=== PATIENT | male | born 1990 | race American Indian/Alaskan Native ===

== ENCOUNTER 2017-01-29 01:17 | Emergency (ER) | payer OTHER ==
[2017-01-29 01:31] VITALS: BP 144/79; PULSE 60; RESP 16; TEMP 98.2; O2SAT 100
[2017-01-29] MEDS ORDERED: TDAP Vaccine 0.5 mL Syr IM ONE (01:40)
--- NOTE | 2017-01-29 01:43 | ED PDOC ---
HPI: Wound Care - HPI Time Seen by Provider: 01/29/17 01:32 Chief Complaint (Nursing): Trauma Chief Complaint (Provider): right hand 4th digit injury History Per: Patient History Of Present Illness: 26 y/o male presents for eval of cut to right hand 4th digit, sustained prior to arrival. Patient states he fell on a piece of glass. Patient denies numbness/weakness right upper extremity, limitation of movement. Last Tetanus unknown. Past Medical History Reviewed: Historical Data, Nursing Documentation, Vital Signs Vital Signs: Last Vital Signs Temp 98.2 F 01/29/17 01:29 Pulse 60 01/29/17 01:29 Resp 16 01/29/17 01:29 BP 144/79 01/29/17 01:29 Pulse Ox 100 01/29/17 01:29 - Medical History PMH: No Chronic Diseases - Surgical History Surgical History: No Surg Hx - Family History Family History: States: Unknown Family Hx - Allergies Allergies/Adverse Reactions: Allergies Allergy/AdvReac Type Severity Reaction Status Date / Time No Known Allergies Allergy Verified 01/29/17 01:29 Review of Systems ROS Statement: Except As Marked, All Systems Reviewed And Found Negative Musculoskeletal: Positive for: Hand Pain (right hand 4th digit) Physical Exam - Reviewed Nursing Documentation Reviewed: Yes Vital Signs Reviewed: Yes - Physical Exam Appears: Positive for: Well, Non-toxic, No Acute Distress Head Exam: Positive for: ATRAUMATIC, NORMAL INSPECTION, NORMOCEPHALIC Pulses-Radial (L): 2+ Pulses-Radial (R): 2+ Extremity: Positive for: Normal ROM, Other (small skin avulsion distal palmar right hand 4th digit. No active bleeding. Nail intact. Distal NV, motor in tact) Neurologic/Psych: Positive for: Alert, Oriented - ECG O2 Sat by Pulse Oximetry: 100 - Other Rad xray right hand 4th digit X-Ray: Viewed By Ca X-Ray Interpretation: no acute findings - Progress ED Course And Treament: xray, boostrix IM Procedure: Wound Repair - Irrigated Irrigated with ml of normal saline: soaked with betadine/normal saline - Muscle repiar layer closed with Muscle repair layer closed with:: Abx ointment applied, Dressing applied, Tetanus ordered - Patient tolerated procedure Patient Tolerated Procedure:: Well Medical Decision Making Medical Decision Making: Patient educated on wound care, discharged with instructions to follow up PMD 2- 3 days. Advised bacitracin daily. Return to ED for worsening/concerning symptoms. Disposition - Clinical Impression Clinical Impression: Avulsion of skin of finger - Patient ED Disposition Is Patient to be Admitted: No Counseled Patient/Family Regarding: Studies Performed, Diagnosis, Need For Followup - Disposition Disposition: Routine/Home Disposition Time: 02:11 Condition: GOOD Instructions: Skin Avulsion (ED)
--- NOTE | 2017-01-29 14:43 | RAD ---
PROCEDURE: Right ring finger radiographs. HISTORY: fell on glass. Relevant medical history: 4th digit COMPARISON: None. TECHNIQUE: AP radiograph of the right hand, as well as spot oblique and lateral images of ring finger were obtained. FINDINGS: RIGHT RING FINGER: Normal right ring finger, without fracture or focal lesion. Remainder of the right hand (as seen on the AP view) grossly unremarkable. JOINTS: Normal. SOFT TISSUES: No visulaized radiopaque/visualized foreign body. OTHER FINDINGS: None. IMPRESSION: No significant or acute findings to account for/ related to the clinical presentation. No preliminary report provided by emergency department personnel.
== END 2017-01-29 02:24 | disposition home or self-care (01) ==
LOC: H.ER 01:17
DX: S61.214A Laceration without foreign body of right ring finger without damage to nail, initial encounter (principal); W19.XXXA Unspecified fall, initial encounter; Y92.89 Other specified places as the place of occurrence of the external cause